=== PATIENT | female | born 1965 | race Caucasian/White ===

== ENCOUNTER → 2016-11-02 | Outpatient (CLI) | payer OTHER ==
[~2016-11-02] MED LIST: HYDROCODONE BI473 ML PO; IBUPROFEN400 MG PO; MULTI VITAMINS1 TA1 PO; NORCO 325 MG-51 TAB PO; PHENERGAN25 M3 PO; PROMETHAZINE12.5 MG PR; VELIVET PO; ZOFRAN 8MG TABLE8 MG PO
--- NOTE | 2016-11-04 19:01 | RADIOLOGY REPORT PS360 ---
CT CHEST W/ CONTRAST CT ABD PELVIS W/ CONTRAST, Ordering Physician: Uvaldo Parra MD Patient Age: 50 years: Female HISTORY: BREAST CANCER, TRIPLE NEGATIVEfollow-up following completed chemotherapy TECHNIQUE: Helical CT scanning performed through chest abdomen and pelvis following 75 cc [id number] Sagittal and coronal reconstructions on CT workstation COMPARISON is made to previous studies 10/[address] CHEST WITH CONTRAST----- Stable CT chest with No significant new findings and no particular suspicious areas or densities.. . There are 2 tiny less than 5 mm densities along the minor fissure noted First is seen on axial image 47, coronal 25 sagittal 26. Fairly low-density measuring up to roughly 5 mm axial plane- this is extremely thin on sagittal view. It does not appear to be significance but since it is slightly more apparent today I would recommend a follow-up CT in 6 months... There is also a small 5 mm x 3 mm mm stable area of thickening along the fissure on axial image 49/50, sagittal 26 coronal:25q this appears stable benign barely evident. Not of concern. Scattered scant areas of likely scant peripheral atelectasis, doubt infiltrate anteriorly at lingula axial 53-54. Postsurgical changes left breast noted. Appears similar to previous study. The heart queta and mediastinal structures appear stable. Scattered small calcified mediastinal nodes but no significant adenopathy mediastinum. Osseous structures appear stable. Scoliosis but no osseous lesions identified IMPRESSION CT chest No prominent findings. The No particularly suspicious findings There are 2 very tiny subtle densities along the minor fissure which I believe may reflect fissural nodules and pleural scarring. One is slightly more apparent but most likely benign feature. Doubt metastatic disease. I would suggest a follow-up CT chest 6 months to confirm stable CT ABDOMEN AND PELVIS WITH CONTRAST------- ABDOMEN: Liver: Liver overall normal size with long right lobe measuring up to 20 cm height stable since previous study. Right lobe extends down to the upper pelvis. Tiny subtle 5 x 6 low density focus involving the medial segment left hepatic lobe. This was present on October 2015 & 12/15/2013 CT studies. Likely represents a benign features such as cyst. . Also stable small just over ~6 mm low-density area at the posterior right lobe liver best seen on sagittal image 27. This was also evident on 2015 as well 2013 and appears stable.. Benign feature possible tiny cyst Gallbladder: Nondistended. No radio opaque stones.. Sludge likely present. Pancreas: No masses or peripancreatic fluid collections. Spleen: Unremarkable. Adrenals: Unremarkable Kidneys/ureters: No renal calculi or obstructing ureteral calculi. Tiny subcentimeter cyst upper pole right kidney is stable . PELVIS: Reproductive: Retroverted uterus with moderate endometrial stripe no adnexal masses. Bladder: Nondistended. No obvious stones or masses. Appendix: Unremarkable. No distention or periappendiceal phlegmonous change. ABDOMEN PELVIS: Stomach bowel: Nondistended. No obvious mass or thickening. Peritoneum: No abnormal fluid collections. No obvious inflammatory changes. Nofree air. Lymph nodes: No enlarged lymph nodes apparent. Vasculature: No evidence of abdominal aortic aneurysm. No retroperitonealhemorrhage evident. Bones: No lytic or blastic changes evident.. Lumbar rotolevoscoliosis upper L-spine IMPRESSION:...................... 1. No evidence of metastatic disease. 2.:. Stable observations liver: A..... Stable tiny barely evident~ 6 mm probable benign cystic areas at liver: These appear stable since 2015 2013 prior studies it can be followed ( First at left lobe of liver & the second at posterior right lobe. ) B... Elongated right lobe/Becky's lobe of liver extends to upper pelvis; but with overall upper normal volume of liver
== END ==
LOC: RAD 08:44
DX: Z85.3 Personal history of malignant neoplasm of breast (principal)
CPT/HCPCS: Q9967

== ENCOUNTER → 2017-01-16 | Outpatient (CLI) | payer OTHER ==
[2017-01-16 09:35] LABS: HEMOGLOBIN 13.1 g/dL (12.2-16.2)
[2017-01-16 09:36] LABS: LYMPH % 22.8 % (10-50.0)
[2017-01-16 10:16] LABS: BUN 11 mg/dL (7-18)
[2017-01-16 10:26] LABS: GFR (ESTIMATED) 89 ML/MIN (59-)
== END ==
LOC: LAB 08:40
PROVIDERS: Nurse Practitioner Obstetrics & Gynecology
DX: Z01.419 Encounter for gynecological examination (general) (routine) without abnormal findings (principal)

== ENCOUNTER → 2017-02-06 | Outpatient (CLI) | payer OTHER ==
[2017-02-06 08:18] LABS: HEMOGLOBIN 13.9 g/dL (12.2-16.2); LYMPH # 1.6 K/mm3 (0.7-4.5); LYMPH % 34.1 % (10-50.0)
[2017-02-06 09:23] LABS: BUN 10 mg/dL (7-18)
[2017-02-06 09:25] LABS: GFR (ESTIMATED) 76 ML/MIN (59-)
== END ==
LOC: RAD 08:01
PROVIDERS: Nurse Practitioner
DX: C50.912 Malignant neoplasm of unspecified site of left female breast (principal); Z85.3 Personal history of malignant neoplasm of breast